=== PATIENT | male | born 1960 | race Caucasian/White ===

== ENCOUNTER 2016-11-06 01:03 | Inpatient (IN) | payer SELFPAY ==
[2016-11-06] VITALS (7 sets, daily range): BP systolic 126–207; BP diastolic 75–109
[~2016-11-06] VITALS: Ht 177.8 cm; Wt 68.0 kg
[2016-11-06] MEDS ORDERED: METO25TA9 PO (02:42)
[2016-11-06] MEDS ORDERED: AMLO10TA2 PO (02:42)
[2016-11-06] MEDS ORDERED: ACETAMINOPHEN 325 MG TABLET. PO PRN (03:15)
[2016-11-06] MEDS ORDERED: LABETALOL 20 MG/4 ML DISP.SYRIN. IV PRN (03:15)
[2016-11-06] MEDS ORDERED: ONDANSETRON PF 4 MG/2 ML VIAL. IV PRN (03:15)
[2016-11-06] MEDS ORDERED: HYDROcodone/APAP 5/325MG 1 TAB TABLET PO PRN (03:30)
[2016-11-06] MEDS ORDERED: NICOTINE 21MG PATCH. TD PRN (03:30)
--- NOTE | 2016-11-06 04:53 | EKG ---
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
[2016-11-06] MEDS: ASPIRIN ENTERIC COATED 325 MG TABLET.DR. PO SCH (08:00)
[2016-11-06] MEDS: ENOXAPARIN 40 MG/0.4 ML SYRINGE. SQ SCH (09:00)
[2016-11-06 09:36] LABS: BASO # 0.1 x10^3/uL (0.0-0.2); BASO % 1 % (0-3); EOS % 2 % (0-3); HEMATOCRIT 39.7 % (39.0-53.0); HEMOGLOBIN 13.8 g/dL (13.0-17.5); LYMPH # 1.7 x10^3/uL (1.0-4.8); LYMPH % 19 % (24-48); MEAN CORPUSCULAR HEMOGLOBIN 31 pg (25-35); MEAN CORPUSCULAR HGB CONC 35 g/dL (31-37); MEAN CORPUSCULAR VOLUME 89 fL (79-100); MONO % 7 % (0-9); NEUT % 72 % (31-73); PLATELET COUNT 221 x10^3/uL (140-400); RED BLOOD COUNT 4.48 x10^6/uL (4.30-5.70); RED CELL DISTRIBUTION WIDTH 14.6 % (11.5-14.5); WHITE BLOOD COUNT 9.3 x10^3/uL (4.0-11.0)
[2016-11-06 09:50] LABS: ALBUMIN 3.1 g/dL (3.4-5.0); ALBUMIN/GLOBULIN RATIO 0.7 (1.0-1.7); CALCIUM 8.4 mg/dL (8.5-10.1); TOTAL BILIRUBIN 0.5 mg/dL (0.2-1.0); TOTAL PROTEIN 7.7 g/dL (6.4-8.2)
--- NOTE | 2016-11-06 12:31 | RAD ---
MRI of the brain without contrast 11/06/2016 Clinical history: Right-sided paralysis and slurred speech for 2 days. Technique: Unenhanced T1-weighted sagittal and axial, T2-weighted axial and coronal and FLAIR, gradient-echo and diffusion-weighted axial images of the brain were obtained. Findings: No previous studies are available for comparison. There is generalized parenchymal atrophy. Patchy, confluent and multiple focal areas of abnormally increased signal intensity are seen within the periventricular and subcortical white matter of both cerebral hemispheres along with the rachele on the FLAIR and T2-weighted images consistent with areas of small vessel ischemic disease. Old areas of lacunar infarction are seen involving the white matter of both frontal lobes, right greater than left. These measure 5 mm to 1.1 cm in size. A somewhat oval-shaped area of restricted diffusion is seen involving the left aspect of the rachele which measures 1.3 cm in greatest diameter. This is consistent with an area of acute ischemia/infarction. There is no significant surrounding edema or associated mass effect at this time. No additional acute parenchymal abnormality is seen. Mild mucosal thickening is seen scattered throughout the paranasal sinuses. There is a small to moderate-sized left mastoid effusion. Normal flow voids are seen within the major vascular structures surrounding the brain parenchyma. Impression: 1.3 cm area of acute ischemia/infarction is seen involving the left aspect of the rachele as outlined above. There is no significant surrounding edema or associated mass effect. The patient's nurse was notified of this finding.
--- NOTE | 2016-11-06 12:41 | PDOC1 ---
History and Physical Date of Admission Date of Admission DATE: 11/06/16 TIME: 12:34 Identification/Chief Complaint Chief Complaint stroke sxs Problems: Source Source: Caregiver, Chart review, Patient History of Present Illness History of Present Illness 56 y/o male, current hevay smoker 2 ppday, prev heavy drinker quit 6- 7 mos ago, started to have R arm/hand weakness acutely yesterday, then followed by RLE weakness, had difficulty getting up. HEnce went to [place], [place] during the day, had some slurred speech, but now has recovered that, Never had a stroke , HTN only as hx, on BB. TRansferred here. MRI does show: Impression: 1.3 cm area of acute ischemia/infarction is seen involving the left aspect of the rachele as outlined above. There is no significant surrounding edema or associated mass effect. 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 Medical History Cardiovascular: No pertinent hx, HTN Pulmonary: No pertinent hx GI: No pertinent hx Heme/Onc: No pertinent hx Hepatobiliary: No pertinent hx Psych: No pertinent hx Rheumatologic: No pertinent hx Infectious disease: No pertinent hx ENT: No pertinent hx Renal/: No pertinent hx Endocrine: No pertinent hx Dermatology: No pertinent hx Past Surgical History Past Surgical History: Hernia Repair Family History Family History: Hypertension Social History Smoke: 2 packs per day ALCOHOL: other (quit) Drugs: None Current Medications Current Medications Current Medications Aspirin (Ecotrin) 325 mg DAILYWBKFT PO ; Start 11/06/16 at 08:00 Labetalol HCl (Normodyne) 10 mg PRN Q10MIN PRN IV HYPERTENSION, SEE COMMENTS; Start 11/06/16 at 03:15 Acetaminophen (Tylenol) 650 mg PRN Q6HRS PRN PO FEVER; Start 11/06/16 at 03:15 Ondansetron HCl (Zofran) 4 mg PRN Q6HRS PRN IV NAUSEA/VOMITING; Start 11/06/16 at 03:15 Enoxaparin Sodium (Lovenox 40mg Syringe) 40 mg DAILY SQ Last administered on t 09:00; Start 11/06/16 at 09:00 Acetaminophen/ Hydrocodone Bitart (Lortab 5/325) 1 tab PRN Q4HRS PRN PO PAIN; Start 11/06/16 at 03:30; Status UNV Nicotine (Nicoderm Cq 21mg) 1 patch PRN DAILY PRN TD SMOKING CESSATION; Start 11/06/16 at 03:30 Acetaminophen/ Hydrocodone Bitart (Lortab 5/325) 1 tab PRN Q4HRS PRN PO PAIN; Start 11/06/16 at 03:30 Active Scripts Active Reported Amlodipine Besylate 10 Mg Tablet 10 Mg PO DAILY Metoprolol Succinate ( Xl ) (Metoprolol Succinate) 25 Mg Tab.er.24h 25 Mg PO BID Allergies Allergies: Coded Allergies: lisinopril (Verified Allergy, Severe, Anaphylaxis, 11/06/16) ROS Review of System neg 14 pt , per HPI Physical Exam General: Alert, Oriented X3, Cooperative, No acute distress HEENT: Atraumatic, PERRLA, EOMI Lungs: Clear to auscultation, Normal air movement Heart: S1S2, RRR, no thrills, no rubs, no gallops, no murmurs Cardiovascular: S1, S2 Breasts: Normal, Rt breast nml w/o mass, Lt breast nml w/o mass, Nipples normal Abdomen: Normal bowel sounds, Soft, No tenderness, No hepatosplenomegaly, No masses Male Genitals Exam: normal genitalia, normal prostate Rectal Exam: not examined PELVIC: Nml ext genitalia Extremities: Other (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, MMT 3/5 on RT UE, the rest iis 5/5, normal DTrs, and no sensory deficit) Skin: No rashes, No breakdown, No significant lesion Psych/Mental Status: Mental status NL, Mood NL Vitals Vitals Vital Signs Date Time Temp Pulse Resp B/P (MAP) Pulse Ox O2 Delivery O2 Flow Rate FiO2 11/06/16 11:00 97.5 63 17 126/75 (92) 96 Room Air 97.5 Labs Labs Laboratory Tests Test 11/06/16 09:25 White Blood Count 9.3 x10^3/uL (4.0-11.0) Red Blood Count 4.48 x10^6/uL (4.30-5.70) Hemoglobin 13.8 g/dL (13.0-17.5) Hematocrit 39.7 % (39.0-53.0) Mean Corpuscular Volume 89 fL (79-100) Mean Corpuscular Hemoglobin 31 pg (25-35) Mean Corpuscular Hemoglobin Concent 35 g/dL (31-37) Red Cell Distribution Width 14.6 % (11.5-14.5) Platelet Count 221 x10^3/uL (140-400) Neutrophils (%) (Auto) 72 % (31-73) Lymphocytes (%) (Auto) 19 % (24-48) Monocytes (%) (Auto) 7 % (0-9) Eosinophils (%) (Auto) 2 % (0-3) Basophils (%) (Auto) 1 % (0-3) Neutrophils # (Auto) 6.7 x10^3uL (1.8-7.7) Lymphocytes # (Auto) 1.7 x10^3/uL (1.0-4.8) Monocytes # (Auto) 0.6 x10^3/uL (0.0-1.1) Eosinophils # (Auto) 0.2 x10^3/uL (0.0-0.7) Basophils # (Auto) 0.1 x10^3/uL (0.0-0.2) Sodium Level 140 mmol/L (136-145) Potassium Level 4.0 mmol/L (3.5-5.1) Chloride Level 104 mmol/L (98-107) Carbon Dioxide Level 25 mmol/L (21-32) Anion Gap 11 (6-14) Blood Urea Nitrogen 8 mg/dL (8-26) Creatinine 1.0 mg/dL (0.7-1.3) Estimated GFR (Cockcroft-Gault) 77.0 BUN/Creatinine Ratio 8 (6-20) Glucose Level 115 mg/dL (70-99) Calcium Level 8.4 mg/dL (8.5-10.1) Total Bilirubin 0.5 mg/dL (0.2-1.0) Aspartate Amino Transf (AST/SGOT) 12 U/L (15-37) Alanine Aminotransferase (ALT/SGPT) 14 U/L (16-63) Alkaline Phosphatase 110 U/L (46-116) Total Protein 7.7 g/dL (6.4-8.2) Albumin 3.1 g/dL (3.4-5.0) Albumin/Globulin Ratio 0.7 (1.0-1.7) Laboratory Tests Test 11/06/16 09:25 White Blood Count 9.3 x10^3/uL (4.0-11.0) Red Blood Count 4.48 x10^6/uL (4.30-5.70) Hemoglobin 13.8 g/dL (13.0-17.5) Hematocrit 39.7 % (39.0-53.0) Mean Corpuscular Volume 89 fL (79-100) Mean Corpuscular Hemoglobin 31 pg (25-35) Mean Corpuscular Hemoglobin Concent 35 g/dL (31-37) Red Cell Distribution Width 14.6 % (11.5-14.5) Platelet Count 221 x10^3/uL (140-400) Neutrophils (%) (Auto) 72 % (31-73) Lymphocytes (%) (Auto) 19 % (24-48) Monocytes (%) (Auto) 7 % (0-9) Eosinophils (%) (Auto) 2 % (0-3) Basophils (%) (Auto) 1 % (0-3) Neutrophils # (Auto) 6.7 x10^3uL (1.8-7.7) Lymphocytes # (Auto) 1.7 x10^3/uL (1.0-4.8) Monocytes # (Auto) 0.6 x10^3/uL (0.0-1.1) Eosinophils # (Auto) 0.2 x10^3/uL (0.0-0.7) Basophils # (Auto) 0.1 x10^3/uL (0.0-0.2) Sodium Level 140 mmol/L (136-145) Potassium Level 4.0 mmol/L (3.5-5.1) Chloride Level 104 mmol/L (98-107) Carbon Dioxide Level 25 mmol/L (21-32) Anion Gap 11 (6-14) Blood Urea Nitrogen 8 mg/dL (8-26) Creatinine 1.0 mg/dL (0.7-1.3) Estimated GFR (Cockcroft-Gault) 77.0 BUN/Creatinine Ratio 8 (6-20) Glucose Level 115 mg/dL (70-99) Calcium Level 8.4 mg/dL (8.5-10.1) Total Bilirubin 0.5 mg/dL (0.2-1.0) Aspartate Amino Transf (AST/SGOT) 12 U/L (15-37) Alanine Aminotransferase (ALT/SGPT) 14 U/L (16-63) Alkaline Phosphatase 110 U/L (46-116) Total Protein 7.7 g/dL (6.4-8.2) Albumin 3.1 g/dL (3.4-5.0) Albumin/Globulin Ratio 0.7 (1.0-1.7) VTE Prophylaxis Ordered VTE Prophylaxis Devices: Yes VTE Pharmacological Prophylaxi: Yes Assessment/Plan Assessment/Plan 1. Acute CVA, left rachele 1.3 cm with no surrounding edema 2. HTN, uncontrolled _ SBP 180s now (usually controlled at home per pt) - but we allow permissive hypertension in the setting of acute stroke 3. Ex drinker 4. 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
--- NOTE | 2016-11-06 13:43 | RAD ---
Bilateral carotid arterial duplex study 11/06/2016 Clinical History: Right-sided weakness and confusion with speech difficulties. Acute pontine infarct. Technique: Using a combination of real-time ultrasound imaging and color-flow and pulse Doppler imaging techniques, duplex evaluation of the carotid and vertebral arterial structures within the neck was performed. Multiple images were obtained. Findings: Mild atheromatous/atherosclerotic plaque formation is seen involving both carotid bifurcations and proximal internal carotid arteries. The peak systolic velocities are not significantly elevated. No hemodynamically significant stenosis is seen. The vertebral arteries demonstrate normal antegrade flow. Impression: Mild atheromatous/atherosclerotic plaque formation is seen involving both carotid bifurcations. No hemodynamically significant stenosis is seen. Please note that stenosis calculations for carotid ultrasound studies are derived from validated velocity criteria which are known to correlate with the NASCET methodology.
[2016-11-06] MEDS ORDERED: ASPIRIN 300 MG SUPP.RECT PR PRN (15:00)
[2016-11-06] MEDS ORDERED: MAG HYDROX/ALUMINUM HYD/SIMETH 30 ML ORAL.SUSP PO PRN (15:00)
[2016-11-06] MEDS ORDERED: MORPHINE SULFATE 2 MG/ML DISP.SYRIN. IV PRN (15:00)
--- NOTE | 2016-11-06 15:57 | PDOC2 ---
CONSULT Date of Consult Date of Consult DATE: 11/06/16 TIME: 15:54 Reason for Consult Reason for Consult: CVA History of Present Illness Reason for Visit: This patient is 56-year-old man with a past medical history of heavy smoker 2 packs per day, heavy drinker and quit 6 months back. Information obtained from patient and multiple family members at bedside. They report patient slept day before yesterday around midnight and he woke up around known yesterday he was having some weakness in his right side. He went to [facility] and was transferred here with complaints of right-sided weakness, slurring of speech. Patient reports he has no history of previous CVA. He lives at home with his daughter. outside window for TPA. CVA evaluation. MRI brain shows 1.3 cm area of acute ischemic stroke seen in the left rachele. There was no surrounding edema or associated mass effect. Carotid Doppler did not show any hemodynamically significant stenosis. Echocardiogram with bubble. history of uncontrolled hypertension Allowed permissive hypertension and initially we will slowly start correcting blood pressure. Hyperlipidemia Check lipid profile Start Statin. Past Medical History Cardiovascular: No pertinent hx, HTN Pulmonary: No pertinent hx GI: No pertinent hx Heme/Onc: No pertinent hx Hepatobiliary: No pertinent hx Psych: No pertinent hx Rheumatologic: No pertinent hx Infectious disease: No pertinent hx ENT: No pertinent hx Renal/: No pertinent hx Endocrine: No pertinent hx Dermatology: No pertinent hx Past Surgical History Past Surgical History: Hernia Repair Family History Family History: Hypertension Social History 2 packs per day ALCOHOL: other (quit) Drugs: None Current Medications Current Medications Current Medications Aspirin (Ecotrin) 325 mg DAILYWBKFT PO ; Start 11/06/16 at 08:00 Labetalol HCl (Normodyne) 10 mg PRN Q10MIN PRN IV HYPERTENSION, SEE COMMENTS; Start 11/06/16 at 03:15 Acetaminophen (Tylenol) 650 mg PRN Q6HRS PRN PO FEVER; Start 11/06/16 at 03:15 Ondansetron HCl (Zofran) 4 mg PRN Q6HRS PRN IV NAUSEA/VOMITING; Start 11/06/16 at 03:15 Enoxaparin Sodium (Lovenox 40mg Syringe) 40 mg DAILY SQ Last administered on t 09:00; Start 11/06/16 at 09:00 Acetaminophen/ Hydrocodone Bitart (Lortab 5/325) 1 tab PRN Q4HRS PRN PO PAIN; Start 11/06/16 at 03:30; Status UNV Nicotine (Nicoderm Cq 21mg) 1 patch PRN DAILY PRN TD SMOKING CESSATION; Start 11/06/16 at 03:30 Acetaminophen/ Hydrocodone Bitart (Lortab 5/325) 1 tab PRN Q4HRS PRN PO PAIN; Start 11/06/16 at 03:30 Aspirin (Aspirin) 300 mg PRN 1X PRN OR IF UNABLE TO TAKE PO; Start 11/06/16 at 15:00 Morphine Sulfate 2 mg PRN Q2HR PRN IV PAIN; Start 11/06/16 at 15:00; Stop 11/06 at 15:22; Status DC Al Hydroxide/Mg Hydroxide (Mylanta Plus Xs) 30 ml PRN Q2HR PRN PO HEARTBURN / GAS; Start 11/06/16 at 15:00 Famotidine (Pepcid) 20 mg DAILYAC IVP ; Start 11/07/16 at 07:30 Morphine Sulfate 2 mg PRN Q2HR PRN IV PAIN; Start 11/06/16 at 15:30 Atorvastatin Calcium (Lipitor) 20 mg QHS PO ; Start 11/06/16 at 21:00 Sodium Chloride 1,000 ml @ 75 mls/hr [id number] IV ; Start 11/06/16 at 16:15 Active Scripts Active Reported Amlodipine Besylate 10 Mg Tablet 10 Mg PO DAILY Metoprolol Succinate ( Xl ) (Metoprolol Succinate) 25 Mg Tab.er.24h 25 Mg PO BID Allergies Allergies: Coded Allergies: lisinopril (Verified Allergy, Severe, Anaphylaxis, 11/06/16) Physical Exam Physical Exam REVIEW OF SYSTEMS: Otherwise, not [id number] review of systems. PHYSICAL EXAMINATION: General appearance is in acute distress. HEENT: Normocephalic and nontraumatic. Neck is supple. No lymphadenopathy. No crepitus. Cardiovascular: S1, S2, regular rate and rhythm. Pulmonary: Clear to auscultation bilaterally. Abdomen: Bowel sounds are positive. Abdomen is soft, nontender, and nondistended. Extremities: No rash, lesions, or edema. No restriction of range of motion NEUROLOGICAL EXAMINATION: Alert Oriented to time, place and person. PERRL. EOMI. CN: no focal findings. dysarthria+ Muscle strength: minimal movements on right upper ex slight weakness on right lower ext left side good strength. DTR: 1-2 Plantar reflex: Flexor response bilaterally Gait: not examined in bed. Sensory exam: no abnormal findings. No obvious cerebellar signs elicited on left right not able.. Vitals VITALS Vital Signs Date Time Temp Pulse Resp B/P (MAP) Pulse Ox O2 Delivery O2 Flow Rate FiO2 11/06/16 11:00 97.5 63 17 126/75 (92) 96 Room Air 97.5 Labs Labs Laboratory Tests Test 11/06/16 09:25 White Blood Count 9.3 x10^3/uL (4.0-11.0) Red Blood Count 4.48 x10^6/uL (4.30-5.70) Hemoglobin 13.8 g/dL (13.0-17.5) Hematocrit 39.7 % (39.0-53.0) Mean Corpuscular Volume 89 fL (79-100) Mean Corpuscular Hemoglobin 31 pg (25-35) Mean Corpuscular Hemoglobin Concent 35 g/dL (31-37) Red Cell Distribution Width 14.6 % (11.5-14.5) Platelet Count 221 x10^3/uL (140-400) Neutrophils (%) (Auto) 72 % (31-73) Lymphocytes (%) (Auto) 19 % (24-48) Monocytes (%) (Auto) 7 % (0-9) Eosinophils (%) (Auto) 2 % (0-3) Basophils (%) (Auto) 1 % (0-3) Neutrophils # (Auto) 6.7 x10^3uL (1.8-7.7) Lymphocytes # (Auto) 1.7 x10^3/uL (1.0-4.8) Monocytes # (Auto) 0.6 x10^3/uL (0.0-1.1) Eosinophils # (Auto) 0.2 x10^3/uL (0.0-0.7) Basophils # (Auto) 0.1 x10^3/uL (0.0-0.2) Sodium Level 140 mmol/L (136-145) Potassium Level 4.0 mmol/L (3.5-5.1) Chloride Level 104 mmol/L (98-107) Carbon Dioxide Level 25 mmol/L (21-32) Anion Gap 11 (6-14) Blood Urea Nitrogen 8 mg/dL (8-26) Creatinine 1.0 mg/dL (0.7-1.3) Estimated GFR (Cockcroft-Gault) 77.0 BUN/Creatinine Ratio 8 (6-20) Glucose Level 115 mg/dL (70-99) Calcium Level 8.4 mg/dL (8.5-10.1) Total Bilirubin 0.5 mg/dL (0.2-1.0) Aspartate Amino Transf (AST/SGOT) 12 U/L (15-37) Alanine Aminotransferase (ALT/SGPT) 14 U/L (16-63) Alkaline Phosphatase 110 U/L (46-116) Total Protein 7.7 g/dL (6.4-8.2) Albumin 3.1 g/dL (3.4-5.0) Albumin/Globulin Ratio 0.7 (1.0-1.7) Laboratory Tests Test 11/06/16 09:25 White Blood Count 9.3 x10^3/uL (4.0-11.0) Red Blood Count 4.48 x10^6/uL (4.30-5.70) Hemoglobin 13.8 g/dL (13.0-17.5) Hematocrit 39.7 % (39.0-53.0) Mean Corpuscular Volume 89 fL (79-100) Mean Corpuscular Hemoglobin 31 pg (25-35) Mean Corpuscular Hemoglobin Concent 35 g/dL (31-37) Red Cell Distribution Width 14.6 % (11.5-14.5) Platelet Count 221 x10^3/uL (140-400) Neutrophils (%) (Auto) 72 % (31-73) Lymphocytes (%) (Auto) 19 % (24-48) Monocytes (%) (Auto) 7 % (0-9) Eosinophils (%) (Auto) 2 % (0-3) Basophils (%) (Auto) 1 % (0-3) Neutrophils # (Auto) 6.7 x10^3uL (1.8-7.7) Lymphocytes # (Auto) 1.7 x10^3/uL (1.0-4.8) Monocytes # (Auto) 0.6 x10^3/uL (0.0-1.1) Eosinophils # (Auto) 0.2 x10^3/uL (0.0-0.7) Basophils # (Auto) 0.1 x10^3/uL (0.0-0.2) Sodium Level 140 mmol/L (136-145) Potassium Level 4.0 mmol/L (3.5-5.1) Chloride Level 104 mmol/L (98-107) Carbon Dioxide Level 25 mmol/L (21-32) Anion Gap 11 (6-14) Blood Urea Nitrogen 8 mg/dL (8-26) Creatinine 1.0 mg/dL (0.7-1.3) Estimated GFR (Cockcroft-Gault) 77.0 BUN/Creatinine Ratio 8 (6-20) Glucose Level 115 mg/dL (70-99) Calcium Level 8.4 mg/dL (8.5-10.1) Total Bilirubin 0.5 mg/dL (0.2-1.0) Aspartate Amino Transf (AST/SGOT) 12 U/L (15-37) Alanine Aminotransferase (ALT/SGPT) 14 U/L (16-63) Alkaline Phosphatase 110 U/L (46-116) Total Protein 7.7 g/dL (6.4-8.2) Albumin 3.1 g/dL (3.4-5.0) Albumin/Globulin Ratio 0.7 (1.0-1.7) Assessment/Plan Assessment/Plan This patient is 56-year-old man with a past medical history of heavy smoker 2 packs per day, heavy drinker and quit 6 months back. Information obtained from patient and multiple family members at bedside. They report patient slept day before yesterday around midnight and he woke up around known yesterday he was having some weakness in his right side. He went to [facility] and was transferred here with complaints of right-sided weakness, slurring of speech. Patient reports he has no history of previous CVA. He lives at home with his daughter. outside window for TPA. CVA evaluation. MRI brain shows 1.3 cm area of acute ischemic stroke seen in the left rachele. There was no surrounding edema or associated mass effect. Carotid Doppler did not show any hemodynamically significant stenosis. Echocardiogram with bubble. history of uncontrolled hypertension Allowed permissive hypertension and initially we will slowly start correcting blood pressure. Hyperlipidemia Check lipid profile Start Statin. Chronic smoker Counseling provided EX drinker. Counseling provided PT OT evaluation Speech evaluation Rehabilitation modalities. Discussed in detail with patient and family members Continue medical management KATY MIRANDA MD Nov 06, 2016 15:56
[2016-11-06] MEDS: MORPHINE SULFATE 4 MG/ML DISP.SYRIN. IV PRN (16:11)
[2016-11-06] MEDS: IV NORMAL SALINE 1000ML BAG 1,000 ML IV SCH (16:12)
[2016-11-06] MEDS: ATORVASTATIN CALCIUM 20 MG TABLET PO SCH (19:31)
[2016-11-07] MEDS: MORPHINE SULFATE 4 MG/ML DISP.SYRIN. IV PRN (02:13)
[2016-11-07 03:00] VITALS: BP 199/86
--- NOTE | 2016-11-07 04:09 | ACF ---
Admission Forms Criteria STROKE: ISCHEMIC (Place 'X' for any and all applicable criteria): Admission is indicated for 1 or more of the following (1)(2)(3)(4)(5)(6)(7)(8) [ X]I. Acute stroke Extended stay beyond goal length of stay may be needed for(1)(2) [ ]a) Major deficit or clinical deterioration [ ]b) Hospital-acquired infection (eg, urinary tract infection, pneumonia) [ ]c) Embolic cause of stroke [ ]d) Venous thromboembolism(9) [ ]e) Seizures [ ]f) Bleeding (eg, cerebral) [ ]g) Increased intracranial pressure [ ]h) Comorbidities [ ]i) Surgical intervention The original [facility] content created by [facility] [employer] has been revised. The portions of the content which have been revised are identified through the use of italic text, and [facility] [employer] has neither reviewed nor approved the modified material. All other unmodified content is copyright [facility] [employer]. Please see references footnoted in the original [facility] [employer] edition 2014 Admission Criteria Met?: Yes ERASMO CHAPMAN Nov 07, 2016 04:09
[2016-11-07] MEDS: IV NORMAL SALINE 1000ML BAG 1,000 ML IV SCH ×2 (05:12→17:43)
[2016-11-07 05:43] LABS: INR 1.2 (0.8-1.1); PROTHROMBIN TIME PATIENT 14.8 SEC (11.7-14.0)
[2016-11-07 05:57] LABS: CHOLESTEROL/HDL RATIO 5.7
[2016-11-07 07:00] VITALS: BP 181/75
[2016-11-07] MEDS: ASPIRIN ENTERIC COATED 325 MG TABLET.DR. PO SCH (08:00)
[2016-11-07] MEDS: ENOXAPARIN 40 MG/0.4 ML SYRINGE. SQ SCH (08:07)
[2016-11-07] MEDS: FAMOTIDINE 20 MG/2 ML VIAL IVP SCH (08:08)
[2016-11-07] MEDS ORDERED: METOPROLOL SUCC 24HR ER 25 MG TAB.ER.24H. PO SCH (10:00)
[2016-11-07 10:58] VITALS: BP 141/76
[2016-11-07] MEDS: amLODIPine BESYLATE 10 MG TABLET PO SCH (12:45)
--- NOTE | 2016-11-07 14:34 | PDOC ---
PROGRESS NOTES Chief Complaint Chief Complaint 1. Acute CVA, left rachele 1.3 cm with no surrounding edema 2. HTN, uncontrolled _ SBP 180s now (usually controlled at home per pt) - but we allow permissive hypertension in the setting of acute stroke 3. Ex drinker 4. Current smoker - not needing a patch History of Present Illness History of Present Illness SBP 180s,. 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 and thin liquids Self pay, dtr RN, at bedside, has plans set up on who will take care of him Patient wants to go home US carotids neg Echo done but pending PLAN: Keep overnight , dc abdiel Restart norvasc and BB Echo read is still pending Dw dtr and pt [employer] REPORT DEVELOPER intermittent/rpt eval abdiel Vitals Vitals Vital Signs Date Time Temp Pulse Resp B/P (MAP) Pulse Ox O2 Delivery O2 Flow Rate FiO2 11/07/16 12:45 60 141/76 11/07/16 10:58 97.7 20 97 Room Air 97.7 Physical Exam General: Alert, Oriented X3, Cooperative, No acute distress Heart: Regular rate, Normal S1 Lungs: Clear Abdomen: Normal bowel sounds, Soft, No tenderness, No hepatosplenomegaly, No masses Extremities: Other (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, 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 3/5 on RT UE, the rest iis 5/5, normal DTrs, and no sensory deficit) Skin: No rashes, No breakdown, No significant lesion Labs LABS Laboratory Tests Test 11/07/16 05:00 Prothrombin Time 14.8 SEC (11.7-14.0) Prothromb Time International Ratio 1.2 (0.8-1.1) Triglycerides Level 93 mg/dL (0-150) Cholesterol Level 164 mg/dL (0-200) LDL Cholesterol, Calculated 116 mg/dL (0-100) VLDL Cholesterol, Calculated 19 mg/dL (0-40) Non-HDL Cholesterol Calculated 135 mg/dL (0-129) HDL Cholesterol 29 mg/dL (40-60) Cholesterol/HDL Ratio 5.7 Review of Systems Review of Systems weak RUE, otherwise all else is neg Comment Review of Relevant I have reviewed the following items gualberto (where applicable) has been applied. Labs Laboratory Tests Test 11/06/16 09:25 11/07/16 05:00 White Blood Count 9.3 x10^3/uL (4.0-11.0) Red Blood Count 4.48 x10^6/uL (4.30-5.70) Hemoglobin 13.8 g/dL (13.0-17.5) Hematocrit 39.7 % (39.0-53.0) Mean Corpuscular Volume 89 fL (79-100) Mean Corpuscular Hemoglobin 31 pg (25-35) Mean Corpuscular Hemoglobin Concent 35 g/dL (31-37) Red Cell Distribution Width 14.6 % (11.5-14.5) Platelet Count 221 x10^3/uL (140-400) Neutrophils (%) (Auto) 72 % (31-73) Lymphocytes (%) (Auto) 19 % (24-48) Monocytes (%) (Auto) 7 % (0-9) Eosinophils (%) (Auto) 2 % (0-3) Basophils (%) (Auto) 1 % (0-3) Neutrophils # (Auto) 6.7 x10^3uL (1.8-7.7) Lymphocytes # (Auto) 1.7 x10^3/uL (1.0-4.8) Monocytes # (Auto) 0.6 x10^3/uL (0.0-1.1) Eosinophils # (Auto) 0.2 x10^3/uL (0.0-0.7) Basophils # (Auto) 0.1 x10^3/uL (0.0-0.2) Sodium Level 140 mmol/L (136-145) Potassium Level 4.0 mmol/L (3.5-5.1) Chloride Level 104 mmol/L (98-107) Carbon Dioxide Level 25 mmol/L (21-32) Anion Gap 11 (6-14) Blood Urea Nitrogen 8 mg/dL (8-26) Creatinine 1.0 mg/dL (0.7-1.3) Estimated GFR (Cockcroft-Gault) 77.0 BUN/Creatinine Ratio 8 (6-20) Glucose Level 115 mg/dL (70-99) Calcium Level 8.4 mg/dL (8.5-10.1) Total Bilirubin 0.5 mg/dL (0.2-1.0) Aspartate Amino Transf (AST/SGOT) 12 U/L (15-37) Alanine Aminotransferase (ALT/SGPT) 14 U/L (16-63) Alkaline Phosphatase 110 U/L (46-116) Total Protein 7.7 g/dL (6.4-8.2) Albumin 3.1 g/dL (3.4-5.0) Albumin/Globulin Ratio 0.7 (1.0-1.7) Prothrombin Time 14.8 SEC (11.7-14.0) Prothromb Time International Ratio 1.2 (0.8-1.1) Triglycerides Level 93 mg/dL (0-150) Cholesterol Level 164 mg/dL (0-200) LDL Cholesterol, Calculated 116 mg/dL (0-100) VLDL Cholesterol, Calculated 19 mg/dL (0-40) Non-HDL Cholesterol Calculated 135 mg/dL (0-129) HDL Cholesterol 29 mg/dL (40-60) Cholesterol/HDL Ratio 5.7 Laboratory Tests Test 11/07/16 05:00 Prothrombin Time 14.8 SEC (11.7-14.0) Prothromb Time International Ratio 1.2 (0.8-1.1) Triglycerides Level 93 mg/dL (0-150) Cholesterol Level 164 mg/dL (0-200) LDL Cholesterol, Calculated 116 mg/dL (0-100) VLDL Cholesterol, Calculated 19 mg/dL (0-40) Non-HDL Cholesterol Calculated 135 mg/dL (0-129) HDL Cholesterol 29 mg/dL (40-60) Cholesterol/HDL Ratio 5.7 Medications Current Medications Aspirin (Ecotrin) 325 mg DAILYWBKFT PO ; Start 11/06/16 at 08:00 Labetalol HCl (Normodyne) 10 mg PRN Q10MIN PRN IV HYPERTENSION, SEE COMMENTS; Start 11/06/16 at 03:15 Acetaminophen (Tylenol) 650 mg PRN Q6HRS PRN PO FEVER; Start 11/06/16 at 03:15 Ondansetron HCl (Zofran) 4 mg PRN Q6HRS PRN IV NAUSEA/VOMITING; Start 11/06/16 at 03:15 Enoxaparin Sodium (Lovenox 40mg Syringe) 40 mg DAILY SQ Last administered on t 08:07; Start 11/06/16 at 09:00 Acetaminophen/ Hydrocodone Bitart (Lortab 5/325) 1 tab PRN Q4HRS PRN PO PAIN; Start 11/06/16 at 03:30; Status UNV Nicotine (Nicoderm Cq 21mg) 1 patch PRN DAILY PRN TD SMOKING CESSATION Last administered on 11/06/16 16:12; Start 11/06/16 at 03:30 Acetaminophen/ Hydrocodone Bitart (Lortab 5/325) 1 tab PRN Q4HRS PRN PO PAIN; Start 11/06/16 at 03:30 Aspirin (Aspirin) 300 mg PRN 1X PRN ID IF UNABLE TO TAKE PO Last administered on 11/07/16 08:07; Start 11/06/16 at 15:00 Morphine Sulfate 2 mg PRN Q2HR PRN IV PAIN; Start 11/06/16 at 15:00; Stop 11/06 at 15:22; Status DC Al Hydroxide/Mg Hydroxide (Mylanta Plus Xs) 30 ml PRN Q2HR PRN PO HEARTBURN / GAS; Start 11/06/16 at 15:00 Famotidine (Pepcid) 20 mg DAILYAC IVP Last administered on 11/07/16 08:08; Start 11/07/16 at 07:30 Morphine Sulfate 2 mg PRN Q2HR PRN IV PAIN Last administered on 11/07/16 02:13 ; Start 11/06/16 at 15:30 Atorvastatin Calcium (Lipitor) 20 mg QHS PO ; Start 11/06/16 at 21:00 Sodium Chloride 1,000 ml @ 75 mls/hr [id number] IV Last administered on 05:12; Start 11/06/16 at 16:15 Amlodipine Besylate (Norvasc) 10 mg DAILY PO Last administered on 11/07/16 12: 45; Start 11/07/16 at 10:00 Metoprolol Succinate (Toprol Xl) 25 mg BID PO ; Start 11/07/16 at 10:00; Stop at 10:00; Status DC Metoprolol Tartrate (Lopressor) 25 mg BID PO ; Start 11/07/16 at 10:00 Active Scripts Active Reported Amlodipine Besylate 10 Mg Tablet 10 Mg PO DAILY Metoprolol Succinate ( Xl ) (Metoprolol Succinate) 25 Mg Tab.er.24h 25 Mg PO BID Vitals/I & O Vital Sign - Last 24 Hours 11/06/16 11/06/16 11/06/16 11/06/16 15:00 15:00 16:11 19:00 Temp 97.5 98.8 97.5 98.8 Pulse 60 68 Resp 18 19 B/P (MAP) 167/109 (128) 149/92 (111) 191/81 (117) Pulse Ox 98 98 O2 Delivery Room Air Room Air Room Air 11/06/16 11/06/16 11/07/16 11/07/16 20:00 23:00 02:13 02:55 Temp 98.9 98.9 Pulse 71 Resp 20 B/P (MAP) 165/76 (105) Pulse Ox 99 O2 Delivery Room Air Room Air Room Air Room Air 11/07/16 11/07/16 11/07/16 11/07/16 03:00 07:00 07:58 10:58 Temp 97.7 97.7 97.7 97.7 Pulse 64 61 60 Resp 18 20 20 B/P (MAP) 199/86 (123) 181/75 (110) 141/76 (97) Pulse Ox 95 98 97 O2 Delivery Room Air Room Air Room Air Room Air 11/07/16 12:45 Pulse 60 B/P (MAP) 141/76 Intake and Output 11/06/16 11/06/16 11/07/16 15:00 23:00 07:00 Intake Total 0 ml 0 ml Output Total 450 ml Balance -450 ml 0 ml CHARLES ESQUIVEL MD Nov 07, 2016 14:34
[2016-11-07 14:50] VITALS: BP 164/72
--- NOTE | 2016-11-07 16:26 | PDOC ---
PROGRESS NOTES Plan This patient is 56-year-old man with a past medical history of heavy smoker 2 packs per day, heavy drinker and quit 6 months back. Information obtained from patient and multiple family members at bedside. They report patient slept day before yesterday around midnight and he woke up around known yesterday he was having some weakness in his right side. He went to [facility] and was transferred here with complaints of right-sided weakness, slurring of speech. Patient reports he has no history of previous CVA. He lives at home with his daughter. outside window for TPA. CVA evaluation. MRI brain shows 1.3 cm area of acute ischemic stroke seen in the left rachele. There was no surrounding edema or associated mass effect. Carotid Doppler did not show any hemodynamically significant stenosis. Echocardiogram with bubble. Pending history of uncontrolled hypertension Allowed permissive hypertension and initially we will slowly start correcting blood pressure. Hyperlipidemia Check lipid profile Start Statin. Chronic smoker Counseling provided EX drinker. Counseling provided PT OT evaluation Speech evaluation Rehabilitation modalities. Discussed in detail with patient and family members Continue medical management Subjective Patient feeling better denies any complaint of headache nausea vomiting chest pain shortness of breath. Objective Vital Signs Date Time Temp Pulse Resp B/P (MAP) Pulse Ox O2 Delivery O2 Flow Rate FiO2 11/07/16 14:50 96.3 65 20 164/72 (102) 95 Room Air 96.3 Intake and Output 11/07/16 07:00 Intake Total 0 ml Output Total 450 ml Balance -450 ml Intake Oral 0 ml Output Urine Total 450 ml # Voids 3 PHYSICAL EXAM PHYSICAL EXAMINATION: General appearance is in acute distress. HEENT: Normocephalic and nontraumatic. Neck is supple. No lymphadenopathy. No crepitus. Cardiovascular: S1, S2, regular rate and rhythm. Pulmonary: Clear to auscultation bilaterally. Abdomen: Bowel sounds are positive. Abdomen is soft, nontender, and nondistended. Extremities: No rash, lesions, or edema. No restriction of range of motion NEUROLOGICAL EXAMINATION: Alert Oriented to time, place and person. PERRL. EOMI. CN: no focal findings. dysarthria+ Muscle strength: minimal movements on right upper ex slight weakness on right lower ext left side good strength. DTR: 1-2 Plantar reflex: Flexor response bilaterally Gait: not examined in bed. Sensory exam: no abnormal findings. No obvious cerebellar signs elicited on left right not able.. Review of Relevant I have reviewed the following items gualberto (where applicable) has been applied. Labs Laboratory Tests Test 11/06/16 09:25 11/07/16 05:00 White Blood Count 9.3 x10^3/uL (4.0-11.0) Red Blood Count 4.48 x10^6/uL (4.30-5.70) Hemoglobin 13.8 g/dL (13.0-17.5) Hematocrit 39.7 % (39.0-53.0) Mean Corpuscular Volume 89 fL (79-100) Mean Corpuscular Hemoglobin 31 pg (25-35) Mean Corpuscular Hemoglobin Concent 35 g/dL (31-37) Red Cell Distribution Width 14.6 % (11.5-14.5) Platelet Count 221 x10^3/uL (140-400) Neutrophils (%) (Auto) 72 % (31-73) Lymphocytes (%) (Auto) 19 % (24-48) Monocytes (%) (Auto) 7 % (0-9) Eosinophils (%) (Auto) 2 % (0-3) Basophils (%) (Auto) 1 % (0-3) Neutrophils # (Auto) 6.7 x10^3uL (1.8-7.7) Lymphocytes # (Auto) 1.7 x10^3/uL (1.0-4.8) Monocytes # (Auto) 0.6 x10^3/uL (0.0-1.1) Eosinophils # (Auto) 0.2 x10^3/uL (0.0-0.7) Basophils # (Auto) 0.1 x10^3/uL (0.0-0.2) Sodium Level 140 mmol/L (136-145) Potassium Level 4.0 mmol/L (3.5-5.1) Chloride Level 104 mmol/L (98-107) Carbon Dioxide Level 25 mmol/L (21-32) Anion Gap 11 (6-14) Blood Urea Nitrogen 8 mg/dL (8-26) Creatinine 1.0 mg/dL (0.7-1.3) Estimated GFR (Cockcroft-Gault) 77.0 BUN/Creatinine Ratio 8 (6-20) Glucose Level 115 mg/dL (70-99) Calcium Level 8.4 mg/dL (8.5-10.1) Total Bilirubin 0.5 mg/dL (0.2-1.0) Aspartate Amino Transf (AST/SGOT) 12 U/L (15-37) Alanine Aminotransferase (ALT/SGPT) 14 U/L (16-63) Alkaline Phosphatase 110 U/L (46-116) Total Protein 7.7 g/dL (6.4-8.2) Albumin 3.1 g/dL (3.4-5.0) Albumin/Globulin Ratio 0.7 (1.0-1.7) Prothrombin Time 14.8 SEC (11.7-14.0) Prothromb Time International Ratio 1.2 (0.8-1.1) Triglycerides Level 93 mg/dL (0-150) Cholesterol Level 164 mg/dL (0-200) LDL Cholesterol, Calculated 116 mg/dL (0-100) VLDL Cholesterol, Calculated 19 mg/dL (0-40) Non-HDL Cholesterol Calculated 135 mg/dL (0-129) HDL Cholesterol 29 mg/dL (40-60) Cholesterol/HDL Ratio 5.7 Laboratory Tests Test 11/07/16 05:00 Prothrombin Time 14.8 SEC (11.7-14.0) Prothromb Time International Ratio 1.2 (0.8-1.1) Triglycerides Level 93 mg/dL (0-150) Cholesterol Level 164 mg/dL (0-200) LDL Cholesterol, Calculated 116 mg/dL (0-100) VLDL Cholesterol, Calculated 19 mg/dL (0-40) Non-HDL Cholesterol Calculated 135 mg/dL (0-129) HDL Cholesterol 29 mg/dL (40-60) Cholesterol/HDL Ratio 5.7 Medications Current Medications Aspirin (Ecotrin) 325 mg DAILYWBKFT PO ; Start 11/06/16 at 08:00 Labetalol HCl (Normodyne) 10 mg PRN Q10MIN PRN IV HYPERTENSION, SEE COMMENTS; Start 11/06/16 at 03:15 Acetaminophen (Tylenol) 650 mg PRN Q6HRS PRN PO FEVER; Start 11/06/16 at 03:15 Ondansetron HCl (Zofran) 4 mg PRN Q6HRS PRN IV NAUSEA/VOMITING; Start 11/06/16 at 03:15 Enoxaparin Sodium (Lovenox 40mg Syringe) 40 mg DAILY SQ Last administered on 08:07; Start 11/06/16 at 09:00 Acetaminophen/ Hydrocodone Bitart (Lortab 5/325) 1 tab PRN Q4HRS PRN PO PAIN; Start 11/06/16 at 03:30; Status UNV Nicotine (Nicoderm Cq 21mg) 1 patch PRN DAILY PRN TD SMOKING CESSATION Last administered on 11/06/16 16:12; Start 11/06/16 at 03:30 Acetaminophen/ Hydrocodone Bitart (Lortab 5/325) 1 tab PRN Q4HRS PRN PO PAIN; Start 11/06/16 at 03:30 Aspirin (Aspirin) 300 mg PRN 1X PRN ID IF UNABLE TO TAKE PO Last administered on 11/07/16 08:07; Start 11/06/16 at 15:00 Morphine Sulfate 2 mg PRN Q2HR PRN IV PAIN; Start 11/06/16 at 15:00; Stop 11/06 at 15:22; Status DC Al Hydroxide/Mg Hydroxide (Mylanta Plus Xs) 30 ml PRN Q2HR PRN PO HEARTBURN / GAS; Start 11/06/16 at 15:00 Famotidine (Pepcid) 20 mg DAILYAC IVP Last administered on 11/07/16 08:08; Start 11/07/16 at 07:30 Morphine Sulfate 2 mg PRN Q2HR PRN IV PAIN Last administered on 11/07/16 02:13 ; Start 11/06/16 at 15:30 Atorvastatin Calcium (Lipitor) 20 mg QHS PO ; Start 11/06/16 at 21:00 Sodium Chloride 1,000 ml @ 75 mls/hr [id number] IV Last administered on 05:12; Start 11/06/16 at 16:15 Amlodipine Besylate (Norvasc) 10 mg DAILY PO Last administered on 11/07/16 12: 45; Start 11/07/16 at 10:00 Metoprolol Succinate (Toprol Xl) 25 mg BID PO ; Start 11/07/16 at 10:00; Stop at 10:00; Status DC Metoprolol Tartrate (Lopressor) 25 mg BID PO ; Start 11/07/16 at 10:00 Active Scripts Active Reported Amlodipine Besylate 10 Mg Tablet 10 Mg PO DAILY Metoprolol Succinate ( Xl ) (Metoprolol Succinate) 25 Mg Tab.er.24h 25 Mg PO BID Vitals/I & O Vital Sign - Last 24 Hours 11/06/16 11/06/16 11/06/16 11/07/16 19:00 20:00 23:00 02:13 Temp 98.8 98.9 98.8 98.9 Pulse 68 71 Resp 19 20 B/P (MAP) 191/81 (117) 165/76 (105) Pulse Ox 98 99 O2 Delivery Room Air Room Air Room Air Room Air 11/07/16 11/07/16 11/07/16 11/07/16 02:55 03:00 07:00 07:58 Temp 97.7 97.7 Pulse 64 61 Resp 18 20 B/P (MAP) 199/86 (123) 181/75 (110) Pulse Ox 95 98 O2 Delivery Room Air Room Air Room Air Room Air 11/07/16 11/07/16 11/07/16 10:58 12:45 14:50 Temp 97.7 96.3 97.7 96.3 Pulse 60 60 65 Resp 20 20 B/P (MAP) 141/76 (97) 141/76 164/72 (102) Pulse Ox 97 95 O2 Delivery Room Air Room Air Intake and Output 11/06/16 11/06/16 11/07/16 15:00 23:00 07:00 Intake Total 0 ml 0 ml Output Total 450 ml Balance -450 ml 0 ml KATY MIRANDA MD Nov 07, 2016 16:26
--- NOTE | 2016-11-07 18:26 | CARD ---
APPROVED REPORT EXAM: Two-dimensional and M-mode echocardiogram with Doppler and color Doppler. Other Information Quality : Technically Limited Technically limited study due to smokers lungs. INDICATION CVA/TIA Echo Enhancing Agent Agent/Amount Used: Agitated Saline 8mL 2D DIMENSIONS RVDd2.7 (2.9-3.5cm)Left Atrium(2D)3.9 (1.6-4.0cm) IVSd1.3 (0.7-1.1cm)Aortic Root(2D)3.2 (2.0-3.7cm) LVDd4.3 (3.9-5.9cm)LVOT Diameter2.8 (1.8-2.4cm) PWd1.5 (0.7-1.1cm)LVDs2.7 (2.5-4.0cm) FS (%) 30.0 %SV56.1 ml LVEF(%)60.0 (>50%) Aortic Valve AoV Peak Mahendra.154.5cm/sAoV VTI31.1cm AO Peak GR.9.5mmHgLVOT VTI 26.10cm AO Mean GR.5mmHgAVA (VTI)5.10cm2 AI P 1/2 Bete645xm Mitral Valve MV E Pjfquvwl23.7cm/sMV DECEL YTMZ140ef MV A Wqhzfpki62.8cm/sE/A Ratio0.9 TDI Lateral E' P. V6.89cm/sMedial E' P. V5.41cm/s E/Lateral E'9.4E/Medial E'12.0 Pulmonary Vein S1 Ttltscql67.3cm/sS2 Aaetgchl58.48cm/s D2 Deylvtom55.5cm/s LEFT VENTRICLE The left ventricle is normal size. There is mild concentric left ventricular hypertrophy. The left ve ntricular systolic function is normal and the ejection fraction is within normal range. The Ejection Fraction is 55-60%. Grossly normal LV wall motion. Transmitral Doppler flow pattern is Grade I-abnorm al relaxation pattern. RIGHT VENTRICLE The right ventricle is normal size. The right ventricular systolic function is normal. ATRIA The left atrium size is normal. The right atrium size is normal. The interatrial septum is intact wit h no evidence for an atrial septal defect or patent foramen ovale as noted on 2-D or Doppler imaging. Injection of agitated saline documented no interatrial shunt. AORTIC VALVE The aortic valve is calcified but opens well. It appears trileaflet. Doppler and Color Flow revealed mild eccentric aortic regurgitation. There is no significant aortic valvular stenosis. MITRAL VALVE The mitral valve is calcified but opens well. There is no evidence of mitral valve prolapse. There is no mitral valve stenosis. Doppler and Color-flow revealed trace mitral regurgitation. TRICUSPID VALVE The tricuspid valve is normal in structure and function. Doppler and Color Flow revealed trace tricus pid regurgitation. There is no pulmonary hypertension. There is no tricuspid valve stenosis. PULMONIC VALVE Doppler and Color Flow revealed no pulmonic valvular regurgitation. There is no pulmonic valvular gena nosis. GREAT VESSELS The aortic root is normal in size. The ascending aorta is not well seen. The IVC is normal in size an d collapses <50% with inspiration. PERICARDIAL EFFUSION There is no evidence of significant pericardial effusion. Critical Notification Critical Value: No <Conclusion> The left ventricular systolic function is normal and the ejection fraction is within normal range. T he Ejection Fraction is 55-60%. Grossly normal LV wall motion. The interatrial septum is intact with no evidence for an atrial septal defect or patent foramen ovale as noted on 2-D or Doppler imaging. Injection of agitated saline documented no interatrial shunt. Doppler and Color Flow revealed mild eccentric aortic regurgitation.
[2016-11-07] MEDS: HYDROcodone/APAP 5/325MG 1 TAB TABLET PO PRN (18:41)
[2016-11-07 19:30] VITALS: BP 137/77
[2016-11-07] MEDS: ATORVASTATIN CALCIUM 20 MG TABLET PO SCH (20:34)
[2016-11-07] MEDS: METOPROLOL TART IMMED RELEASE 25 MG TABLET. PO SCH (20:34)
[2016-11-07 23:30] VITALS: BP 148/67
[2016-11-08 02:50] VITALS: BP 174/80
[2016-11-08] MEDS: HYDROcodone/APAP 5/325MG 1 TAB TABLET PO PRN (03:13)
[2016-11-08 07:49] VITALS: BP 161/71
[2016-11-08] MEDS ORDERED: ASPI325T70 PO (09:10)
[2016-11-08] MEDS ORDERED: ATOR20TA PO (09:10)
[2016-11-08] MEDS: ENOXAPARIN 40 MG/0.4 ML SYRINGE. SQ SCH (09:11)
[2016-11-08] MEDS: ASPIRIN ENTERIC COATED 325 MG TABLET.DR. PO SCH (09:11)
[2016-11-08 09:12] VITALS: BP 161/71
[2016-11-08] MEDS: FAMOTIDINE 20 MG/2 ML VIAL IVP SCH (09:12)
[2016-11-08] MEDS: METOPROLOL TART IMMED RELEASE 25 MG TABLET. PO SCH (09:12)
[2016-11-08] MEDS: amLODIPine BESYLATE 10 MG TABLET PO SCH (09:12)
--- NOTE | 2016-11-08 09:13 | PDOC3 ---
Discharge Summary Visit Information Date of Admission: Nov 06, 2016 Date of Discharge: Nov 08, 2016 Admitting Diagnosis Comment: 1. Acute CVA, left rachele 1.3 cm with no surrounding edema 2. HTN, uncontrolled _ 3. Ex drinker 4. Current smoker - not needing a patch Brief Hospital Course Allergies Allergies Coded Allergies Type Severity Reaction Last Updated Verified lisinopril Allergy Severe Anaphylaxis 11/06/16 Yes Vital Signs Vital Signs Date Time Temp Pulse Resp B/P (MAP) Pulse Ox O2 Delivery O2 Flow Rate FiO2 11/08/16 07:49 98.3 54 19 161/71 (101) 97 Room Air 98.3 Lab Results Laboratory Tests Test 11/06/16 09:25 11/07/16 05:00 White Blood Count 9.3 x10^3/uL (4.0-11.0) Red Blood Count 4.48 x10^6/uL (4.30-5.70) Hemoglobin 13.8 g/dL (13.0-17.5) Hematocrit 39.7 % (39.0-53.0) Mean Corpuscular Volume 89 fL (79-100) Mean Corpuscular Hemoglobin 31 pg (25-35) Mean Corpuscular Hemoglobin Concent 35 g/dL (31-37) Red Cell Distribution Width 14.6 % (11.5-14.5) Platelet Count 221 x10^3/uL (140-400) Neutrophils (%) (Auto) 72 % (31-73) Lymphocytes (%) (Auto) 19 % (24-48) Monocytes (%) (Auto) 7 % (0-9) Eosinophils (%) (Auto) 2 % (0-3) Basophils (%) (Auto) 1 % (0-3) Neutrophils # (Auto) 6.7 x10^3uL (1.8-7.7) Lymphocytes # (Auto) 1.7 x10^3/uL (1.0-4.8) Monocytes # (Auto) 0.6 x10^3/uL (0.0-1.1) Eosinophils # (Auto) 0.2 x10^3/uL (0.0-0.7) Basophils # (Auto) 0.1 x10^3/uL (0.0-0.2) Sodium Level 140 mmol/L (136-145) Potassium Level 4.0 mmol/L (3.5-5.1) Chloride Level 104 mmol/L (98-107) Carbon Dioxide Level 25 mmol/L (21-32) Anion Gap 11 (6-14) Blood Urea Nitrogen 8 mg/dL (8-26) Creatinine 1.0 mg/dL (0.7-1.3) Estimated GFR (Cockcroft-Gault) 77.0 BUN/Creatinine Ratio 8 (6-20) Glucose Level 115 mg/dL (70-99) Calcium Level 8.4 mg/dL (8.5-10.1) Total Bilirubin 0.5 mg/dL (0.2-1.0) Aspartate Amino Transf (AST/SGOT) 12 U/L (15-37) Alanine Aminotransferase (ALT/SGPT) 14 U/L (16-63) Alkaline Phosphatase 110 U/L (46-116) Total Protein 7.7 g/dL (6.4-8.2) Albumin 3.1 g/dL (3.4-5.0) Albumin/Globulin Ratio 0.7 (1.0-1.7) Prothrombin Time 14.8 SEC (11.7-14.0) Prothromb Time International Ratio 1.2 (0.8-1.1) Triglycerides Level 93 mg/dL (0-150) Cholesterol Level 164 mg/dL (0-200) LDL Cholesterol, Calculated 116 mg/dL (0-100) VLDL Cholesterol, Calculated 19 mg/dL (0-40) Non-HDL Cholesterol Calculated 135 mg/dL (0-129) HDL Cholesterol 29 mg/dL (40-60) Cholesterol/HDL Ratio 5.7 Brief Hospital Course Mr. Castillo is a 56 old male, no PCP, lives at home, admitted for acute onset R sided weakness, MRI did show acute stroke, left rachele and Int capsule area, SP so no rehab modalities. Was not on ASA prior. NOw being dcd on ECASA, Lipitor 20 and home meds of norvasc 10 and BB 25 BID (BP on high side) . Shiraz dtr who is RN PT seen and examined Consults: neuro Dc 31 mins Discharge Information Condition at Discharge: Improved, Stable Follow Up: Weeks (PCP 4 weeks) Disposition/Orders: D/C to Home Scheduled Amlodipine Besylate (Amlodipine Besylate), 10 MG PO DAILY, (Reported) Metoprolol Succinate (Metoprolol Succinate ( Xl )), 25 MG PO BID, (Reported) CHARLES ESQUIVEL MD Nov 08, 2016 09:13
== END 2016-11-08 10:57 | disposition home or self-care (01) | DRG 65 ==
LOC: 6 SOUTH 02:10
PROVIDERS: ADMIT Internal Medicine; ATTEND Internal Medicine
DX: I63.9 Cerebral infarction, unspecified (principal); G81.91 Hemiplegia, unspecified affecting right dominant side; E44.1 Mild protein-calorie malnutrition; I10 Essential (primary) hypertension; F17.210 Nicotine dependence, cigarettes, uncomplicated; E78.5 Hyperlipidemia, unspecified; Z82.49 Family history of ischemic heart disease and other diseases of the circulatory system; Z88.8 Allergy status to other drugs, medicaments and biological substances; Z71.6 Tobacco abuse counseling; Z71.41 Alcohol abuse counseling and surveillance of alcoholic
CPT/HCPCS: 36415; 70551; 80053; 80061; 85025; 85610; 93005; 93880; 99406; C8929; J1650; J2270; J7030; S0028; 92526; 92610; 97116